=== PATIENT | female | born 1970 | race Caucasian/White ===

== ENCOUNTER 2018-01-28 17:29 | Emergency (ER) | payer MEDICAID, OTHER ==
[2018-01-28] MEDS: LIDOCAINE 2% VISC 15 ML CUP PO (19:09)
== END 2018-01-28 21:35 | disposition home or self-care (01) ==
LOC: FTE 17:29
DX: T17.208A Unspecified foreign body in pharynx causing other injury, initial encounter (principal); X58.XXXA Exposure to other specified factors, initial encounter; Y92.9 Unspecified place or not applicable
CPT/HCPCS: 70490; 99284-25

== ENCOUNTER 2018-05-07 10:15 | Emergency (ER) | payer MEDICAID ==
[2018-05-07 11:55] LABS: ADD MAN DIFF? NO
[2018-05-07 11:56] LABS: BASOPHIL # 0.1 10^3/ul (0.0-0.1); BASOPHILS % 1.2 % (0.0-2.0); EOSINOPHILS # 0.2 10^3/ul (0.0-0.5); EOSINOPHILS % 1.9 % (0.0-7.0); HEMATOCRIT 39.8 % (37.0-47.0); HEMOGLOBIN 12.7 g/dl (12.0-16.0); LYMPHOCYTES # 3.3 10^3/ul (0.8-2.9); LYMPHOCYTES % 35.2 % (15.0-51.0); MEAN CORPUSCULAR HEMOGLOBIN 26.5 pg (29.0-33.0); MEAN CORPUSCULAR HGB CONC 31.9 g/dl (32.0-37.0); MEAN CORPUSCULAR VOLUME 83.1 fl (82.0-101.0); MEAN PLATELET VOLUME 10.5 fl (7.4-10.4); MONOCYTE # 0.6 10^3/ul (0.3-0.9); MONOCYTES % 6.9 % (0.0-11.0); NEUTROPHIL # 5.1 10^3/ul (1.6-7.5); NEUTROPHILS % 54.5 % (39.0-77.0); PLATELET COUNT 435 10^3/UL (140-415); RED BLOOD COUNT 4.79 10^6/ul (4.20-5.40)
[2018-05-07 11:56] LABS: WHITE BLOOD COUNT 9.3 10^3/ul (4.8-10.8)
[2018-05-07 12:17] LABS: ANION GAP 13 (8-16); BLOOD UREA NITROGEN 10 mg/dl (7-20); CALCIUM 9.3 mg/dl (8.4-10.2); CARBON DIOXIDE 27 mmol/L (21-31); CHLORIDE 105 mmol/L (97-110); CREATININE 0.65 mg/dl (0.44-1.00); GLUCOSE 90 mg/dl (70-220); SODIUM 141 mmol/L (135-144)
[2018-05-07 12:29] LABS: TROPONIN-I < 0.012 ng/ml (0.000-0.120)
[2018-05-07] MEDS ORDERED: KETOROLAC 30 MG INJ IV (12:51)
== END 2018-05-07 12:57 | disposition home or self-care (01) ==
LOC: E/R 10:15
DX: R07.9 Chest pain, unspecified (principal)
CPT/HCPCS: 36415; 71045; 80048; 84484; 85025; 93005; 99285-25

== ENCOUNTER 2018-06-15 16:07 | Emergency (ER) | payer MEDICAID ==
[2018-06-15] MEDS: KETOROLAC 60 MG INJ IM (17:07)
== END 2018-06-15 18:00 | disposition home or self-care (01) ==
LOC: FTE 16:07
DX: M79.601 Pain in right arm (principal); Z87.891 Personal history of nicotine dependence
CPT/HCPCS: 73030; 73030-RT; 81025; 96372; 99284-25

== ENCOUNTER 2019-04-13 20:14 | Emergency (ER) | payer MEDICAID ==
[2019-04-13 20:27] LABS: ADD MAN DIFF? NO
[2019-04-13] MEDS: ONDANSETRON 4 MG INJ IV (20:28)
[2019-04-13] MEDS: morphine 4 MG/ML VIAL IV ×2 (20:28→22:11)
[2019-04-13 20:30] LABS: WHITE BLOOD COUNT 13.1 10^3/ul (4.8-10.8)
[2019-04-13 20:30] LABS: BASOPHIL # 0.1 10^3/ul (0.0-0.1); BASOPHILS % 0.7 % (0.0-2.0); EOSINOPHILS # 0.2 10^3/ul (0.0-0.5); EOSINOPHILS % 1.6 % (0.0-7.0); HEMATOCRIT 39.6 % (37.0-47.0); HEMOGLOBIN 13.1 g/dl (12.0-16.0); LYMPHOCYTES # 4.6 10^3/ul (0.8-2.9); LYMPHOCYTES % 35.2 % (15.0-51.0); MEAN CORPUSCULAR HEMOGLOBIN 28.5 pg (29.0-33.0); MEAN CORPUSCULAR HGB CONC 33.1 g/dl (32.0-37.0); MEAN CORPUSCULAR VOLUME 86.1 fl (82.0-101.0); MEAN PLATELET VOLUME 10.3 fl (7.4-10.4); MONOCYTE # 0.9 10^3/ul (0.3-0.9); MONOCYTES % 6.5 % (0.0-11.0); NEUTROPHIL # 7.3 10^3/ul (1.6-7.5); NEUTROPHILS % 55.7 % (39.0-77.0); PLATELET COUNT 404 10^3/UL (140-415); RED CELL DISTRIBUTION WIDTH 13.9 % (11.5-14.5)
[2019-04-13 20:33] LABS: ADD UMIC YES; UR ASCORBIC ACID NEGATIVE (NEGATIVE); UR BACTERIA FEW /HPF (NONE SEEN); UR BILIRUBIN (Dip) NEGATIVE (NEGATIVE); UR BLOOD (Dip) 1+ mg/dL (NEGATIVE); UR CLARITY CLEAR (CLEAR); UR COLOR COLORLESS (YELLOW); UR GLUCOSE (Dip) NEGATIVE (NEGATIVE); UR KETONES (Dip) NEGATIVE (NEGATIVE); UR LEUKOCYTE ESTERASE (Dip) NEGATIVE Leu/ul (NEGATIVE); UR NITRITE (Dip) NEGATIVE (NEGATIVE); UR RBC 2 /HPF (0-5); UR SPECIFIC GRAVITY (Dip) 1.002 (1.003-1.030); UR TOTAL PROTEIN (Dip) NEGATIVE (NEGATIVE); UR UROBILINOGEN (Dip) NEGATIVE (NEGATIVE); UR WBC 2 /HPF (0-5)
[2019-04-13 20:36] LABS: POSITIVE DIFF @See below
[2019-04-13 20:48] LABS: ALANINE AMINOTRANSFERASE 44 IU/L (13-69); ALBUMIN 4.5 g/dl (3.3-4.9); ALBUMIN/GLOBULIN RATIO 1.18; ALKALINE PHOSPHATASE 107 IU/L (42-121); ANION GAP 9 (5-13); ASPARTATE AMINO TRANSFERASE 56 IU/L (15-46); BILIRUBIN,INDIRECT 0.2 mg/dl (0-1.1); BILIRUBIN,TOTAL 0.2 mg/dl (0.2-1.3); BLOOD UREA NITROGEN 8 mg/dl (7-20); CALCIUM 9.2 mg/dl (8.4-10.2); CARBON DIOXIDE 24 mmol/L (21-31); CHLORIDE 107 mmol/L (97-110); CREATININE 0.63 mg/dl (0.44-1.00); Estimated GFR > 60 mL/min (>60); GLUCOSE 108 mg/dl (70-220); LIPASE 107 U/L (23-300); POTASSIUM 3.5 mmol/L (3.5-5.1); SODIUM 140 mmol/L (135-144); TOTAL PROTEIN 8.3 g/dl (6.1-8.1)
[2019-04-13 21:11] LABS: ANISOCYTOSIS 1+ (0-0); EOSINOPHILS % (M) 5 % (0-7); LYMPHOCYTES #M 5.6 10^3/ul (0.8-2.9); LYMPHOCYTES % (M) 43 % (15-51); MICROCYTOSIS 1+ (0-0); MONOCYTE #M 0.2 10^3/ul (0.3-0.9); MONOCYTES % (M) 2 % (0-11); PLATELET ESTIMATE NORMAL; REACTIVE LYMPHOCYTES #M 0.1 10^3/ul (0.0-0.0); REACTIVE LYMPHOCYTES% (M) 1 % (0-0); SEGMENTED NEUTROPHILS (M) % 49 % (39-77); SMUDGE%M 23 % (0-0)
== END 2019-04-13 22:34 | disposition home or self-care (01) ==
LOC: E/R 20:14
DX: K80.50 Calculus of bile duct without cholangitis or cholecystitis without obstruction (principal); F17.210 Nicotine dependence, cigarettes, uncomplicated
CPT/HCPCS: 36415; 76705; 80053; 81001; 81025; 83690; 85025; 96374; 96375; 96376; 99285-25